=== PATIENT | male | born 1945 | race Caucasian/White ===

== ENCOUNTER 2019-01-30 07:45 | Day surgery (SDC) | payer MEDICARE, OTHER ==
[~2019-01-30] VITALS: Ht 185.4 cm; Wt 88.4 kg
[~2019-01-30 07:45] MED LIST: APIX5TAB3 PO; DILT240C90 PO; HYDR-4353 PO; LISI40TA4 PO; TAMS0.4C32 PO
[2019-01-30 08:05] VITALS: BP 132/70
[2019-01-30] MEDS ORDERED: sodium bicarbonate (8.4%) inj. 75 MEQ in dextrose 5% water 500ml 500 ML IV SCH (08:10)
[2019-01-30] MEDS ORDERED: acetylcysteine 200 MG/ml 4ml vial PO ONE (08:20)
[2019-01-30] MEDS ORDERED: iohexol 350MG/ML 100ml bottle IV ONE (11:01)
== END 2019-01-30 11:36 | disposition home or self-care (01) ==
LOC: SSTAY O 07:45 → EDSTATUS 08:00 → SSTAY O 11:36
PROVIDERS: ATTEND Surgery
DX: I71.4 Abdominal aortic aneurysm, without rupture (principal); I72.3 Aneurysm of iliac artery; I70.202 Unspecified atherosclerosis of native arteries of extremities, left leg; K80.20 Calculus of gallbladder without cholecystitis without obstruction
CPT/HCPCS: 75635; Q9967

== ENCOUNTER 2023-01-02 22:03 | Inpatient (IN) | payer MEDICARE, OTHER ==
[~2023-01-02] VITALS: Ht 182.9 cm; Wt 79.0 kg
[~2023-01-02 22:03] MED LIST changes: +ALBU6.7H14 INH; +ASCO-321 PO; +BUDE10.22 INH; +CALC667T6 PO; +CARV25TA3 PO; +CHOL20002 PO; +DEXA6TAB PO; +DILT-35 PO; -DILT240C90 PO; +FOLI1TAB34 PO; +GUAI600T45 PO; +HYDR-4069 PO; -HYDR-4353 PO; -LISI40TA4 PO; +LOSA50TA64 PO; +ROSU20TA73 PO; -TAMS0.4C32 PO; +[UNRECOGNIZED DRUG - OTHER]
[2023-01-02 22:45] LABS: BASOPHILS % (AUTO) 0 % (0-1); EOSINOPHILS # (AUTO) 0.1 X10'3 (0-0.9); EOSINOPHILS % (AUTO) 0.8 % (0-6); LYMPHOCYTES # (AUTO) 0.5 X10'3 (1.1-4.8); LYMPHOCYTES % (AUTO) 4.9 % (21-51); MEAN CORPUSCULAR HEMOGLOBIN 33.3 PG (27.0-31.0); MEAN CORPUSCULAR HGB CONC 33.6 g/dL (33.0-36.5); MEAN CORPUSCULAR VOLUME 99.1 FL (78-98); MEAN PLATELET VOLUME 6.3 FL (7.4-10.4); MONOCYTES # (AUTO) 0.6 X10'3 (0-0.9); MONOCYTES % (AUTO) 6.6 % (2-12); NEUTROPHILS # (AUTO) 8.7 X10'3 (1.8-7.7); NEUTROPHILS % (AUTO) 87.7 % (42-75); PLATELET COUNT 258 X10'3 (140-440); RED BLOOD COUNT 1.92 X10'6 (4.70-6.10); RED CELL DISTRIBUTION WIDTH 15.7 % (11.5-14.5); WHITE BLOOD COUNT 9.9 X10'3 (4.5-11.0)
[2023-01-02 22:56] LABS: ALANINE AMINOTRANSFERASE 56 U/L (12-78); ALBUMIN 2.1 G/DL (3.4-5.0); ALBUMIN/GLOBULIN RATIO 0.6 (1.1-1.5); ALKALINE PHOSPHATASE 66 IU/L (46-116); ANION GAP 6 (8-16); ASPARTATE AMINO TRANSFERASE 45 U/L (10-37); BILIRUBIN,TOTAL 0.5 MG/DL (0.1-1.0); BLOOD UREA NITROGEN 27 MG/DL (7-18); BUN/CREATININE RATIO 7.6 (10.0-20.0); CALCIUM 8.2 MG/DL (8.5-10.1); CHLORIDE 99 MMOL/L (99-107); CREATININE 3.55 MG/DL (0.60-1.10); GLUCOSE 152 MG/DL (70-104); HEMATOCRIT 19.1 % (42.0-52.0); HEMOGLOBIN 6.4 g/dl (14.0-17.9); POTASSIUM 4.5 MMOL/L (3.5-5.1); SODIUM 139 MMOL/L (135-145); TOTAL CARBON DIOXIDE 33.9 MMOL/L (24-32); TOTAL PROTEIN 5.9 G/DL (6.4-8.2); eCRCL 19 ML/MIN; eGFR 17 ML/MIN
[2023-01-02] MEDS ORDERED: pantoprazole 40mg IV 80 MG in normal saline 100ml IV soln 100 ML IV ONE (23:10)
[2023-01-02] MEDS ORDERED: pantoprazole 40MG/NS 100ML BAG 100 ML IV ONE ×2 (23:15→23:30)
[2023-01-02 23:17] LABS: PROTHROMBIN TIME 10.8 SECONDS (9.0-12.0)
[2023-01-02 23:39] LABS: PRO BRAIN NATRIURETIC PEPTIDE > 30000 PG/ML (0-450)
[2023-01-03] VITALS (15 sets, daily range): BP systolic 118–160; BP diastolic 63–78; PULSE 66–100; RESP 13–66; TEMP 97.6–99.5; O2SAT 94–98
[2023-01-03 01:43] LABS: OCCULT BLOOD STOOL POSITIVE (Neg)
[2023-01-03] MEDS ORDERED: magnesium 2GM in 50ml NS 50 ML IV PRN (04:40)
[2023-01-03] MEDS ORDERED: mag hydrox/Alum hydrox/simeth 30ml oral suspension PO PRN (04:40)
[2023-01-03] MEDS ORDERED: potassium Cl 20 mEq SR tablet PO PRN ×2 (04:40)
[2023-01-03] MEDS ORDERED: potassium Cl 40MEQ/1/2NS 520ml 520 ML IV PRN (04:40)
[2023-01-03] MEDS ORDERED: acetaminophen 325mg tablet PO PRN (04:40)
[2023-01-03] MEDS ORDERED: magnesium Cl slow-release 64mg tablet PO PRN (04:40)
[2023-01-03] MEDS ORDERED: magnesium 4gm in 100ml NS 100 ML IV PRN (04:40)
[2023-01-03] MEDS ORDERED: morphine 2 MG/ML inj. syringe IV PRN ×2 (04:40)
[2023-01-03] MEDS ORDERED: ondansetron/PF 4mg/2ml inj IV PRN (04:40)
[2023-01-03] MEDS ORDERED: dextrose 5%-1/2 normal saline 1,000 ML IV SCH (04:40)
[2023-01-03] MEDS ORDERED: magnesium hydroxide 30ml (MOM) UD suspension PO PRN (04:40)
[2023-01-03] MEDS ORDERED: glucagon, human recombinant 1mg kit SUBCUT PRN (06:35)
[2023-01-03] MEDS ORDERED: DEXTROSE 15 GM of carb/4 tabs (each vial/BOTTLE has 4 tablets) PO PRN ×2 (06:35)
[2023-01-03] MEDS ORDERED: MESSAGE TO PHARMACY PO ONE (06:35)
[2023-01-03] MEDS ORDERED: insulin Lispro (HumaLOG) vial - multi-dose SQ SCH (06:35)
[2023-01-03] MEDS ORDERED: dextrose 50%-water 50ml dispensing syringe IV PRN ×2 (06:35)
[2023-01-03] MEDS: K and/or MAG REPLACEMENT MC SCH ×2 (06:38→20:00)
[2023-01-03 07:07] LABS: MAGNESIUM 2.3 MG/DL (1.5-2.4); POTASSIUM 4.4 MMOL/L (3.5-5.1)
[2023-01-03 07:34] LABS: HEMOGLOBIN A1C 5.3 % (4.5-6.2)
--- NOTE | 2023-01-03 07:43 | NUR ---
Patient in room ED 13. I have received report from KIMBERLY Torres and had the opportunity to ask questions and assume patient care.
--- NOTE | 2023-01-03 07:59 | NUR ---
Report called to Denisha on PCU. Pt transferred upstairs on wheelchair with all belongings.
[2023-01-03] MEDS: docusate sod 100mg capsule PO SCH ×2 (08:00→20:00)
[2023-01-03] MEDS ORDERED: ALBU6.7H14 INH (10:33)
[2023-01-03] MEDS ORDERED: APIX5TAB3 PO (10:33)
[2023-01-03 11:40] LABS: BASOPHILS % (AUTO) 0.5 % (0-1); EOSINOPHILS # (AUTO) 0.1 X10'3 (0-0.9); LYMPHOCYTES # (AUTO) 0.7 X10'3 (1.1-4.8); LYMPHOCYTES % (AUTO) 10.6 % (21-51); MEAN CORPUSCULAR HEMOGLOBIN 32.1 PG (27.0-31.0); MEAN CORPUSCULAR HGB CONC 32.8 g/dL (33.0-36.5); MEAN CORPUSCULAR VOLUME 97.6 FL (78-98); MEAN PLATELET VOLUME 6.5 FL (7.4-10.4); MONOCYTES # (AUTO) 0.6 X10'3 (0-0.9); NEUTROPHILS # (AUTO) 5.5 X10'3 (1.8-7.7); NEUTROPHILS % (AUTO) 78.9 % (42-75); PLATELET COUNT 212 X10'3 (140-440); RED BLOOD COUNT 2.18 X10'6 (4.70-6.10); RED CELL DISTRIBUTION WIDTH 17.2 % (11.5-14.5)
[2023-01-03 11:42] LABS: HEMATOCRIT 21.3 % (42.0-52.0)
[2023-01-03 12:02] LABS: ALANINE AMINOTRANSFERASE 46 U/L (12-78); ALBUMIN 1.9 G/DL (3.4-5.0); ALBUMIN/GLOBULIN RATIO 0.5 (1.1-1.5); ALKALINE PHOSPHATASE 49 IU/L (46-116); ANION GAP 6 (8-16); ASPARTATE AMINO TRANSFERASE 37 U/L (10-37); BILIRUBIN,TOTAL 0.5 MG/DL (0.1-1.0); BLOOD UREA NITROGEN 32 MG/DL (7-18); BUN/CREATININE RATIO 7.5 (10.0-20.0); CALCIUM 7.8 MG/DL (8.5-10.1); CHLORIDE 100 MMOL/L (99-107); CREATININE 4.28 MG/DL (0.60-1.10); GLUCOSE 94 MG/DL (70-104); POTASSIUM 4.4 MMOL/L (3.5-5.1); SODIUM 138 MMOL/L (135-145); TOTAL PROTEIN 5.4 G/DL (6.4-8.2); eCRCL 16 ML/MIN; eGFR 14 ML/MIN
[2023-01-03 13:24] LABS: PHOSPHORUS 2.8 MG/DL (2.3-4.5)
[2023-01-03] MEDS: NUT.TX.IMP.RENAL FXN,LAC-REDUC (Nepro) 237 ML VANILLA PO SCH (18:15)
--- NOTE | 2023-01-03 18:29 | NUR ---
Problems reprioritized. Patient report given, questions answered & plan of care reviewed with KIMBERLY Claudio.
[2023-01-03] MEDS: insulin glargine (Lantus) pen - multi-dose SQ SCH (21:00)
[2023-01-03] MEDS: pantoprazole 40MG/NS 100ML BAG 100 ML IV SCH (22:18)
[2023-01-04] VITALS (7 sets, daily range): BP systolic 105–182; BP diastolic 49–94; PULSE 89–104; RESP 23–29; TEMP 97.8–98.4; O2SAT 95–100
[2023-01-04] MEDS: pantoprazole 40MG/NS 100ML BAG 100 ML IV SCH ×2 (01:00→06:51)
--- NOTE | 2023-01-04 06:12 | NUR ---
Patient in room PCU 3028. I have received report from KIMBERLY Claudio and had the opportunity to ask questions and assume patient care.
[2023-01-04 07:17] LABS: BASOPHILS % (AUTO) 0.6 % (0-1); EOSINOPHILS # (AUTO) 0.1 X10'3 (0-0.9); EOSINOPHILS % (AUTO) 1.7 % (0-6); HEMATOCRIT 22.7 % (42.0-52.0); HEMOGLOBIN 7.6 g/dl (14.0-17.9); LYMPHOCYTES # (AUTO) 0.9 X10'3 (1.1-4.8); LYMPHOCYTES % (AUTO) 12.2 % (21-51); MEAN CORPUSCULAR HEMOGLOBIN 32.5 PG (27.0-31.0); MEAN CORPUSCULAR HGB CONC 33.3 g/dL (33.0-36.5); MEAN CORPUSCULAR VOLUME 97.7 FL (78-98); MEAN PLATELET VOLUME 6.4 FL (7.4-10.4); MONOCYTES # (AUTO) 0.5 X10'3 (0-0.9); MONOCYTES % (AUTO) 7.2 % (2-12); NEUTROPHILS # (AUTO) 5.5 X10'3 (1.8-7.7); NEUTROPHILS % (AUTO) 78.3 % (42-75); PLATELET COUNT 236 X10'3 (140-440); RED BLOOD COUNT 2.32 X10'6 (4.70-6.10)
[2023-01-04 07:27] LABS: ALANINE AMINOTRANSFERASE 47 U/L (12-78); ALBUMIN 2.1 G/DL (3.4-5.0); ALBUMIN/GLOBULIN RATIO 0.5 (1.1-1.5); ALKALINE PHOSPHATASE 58 IU/L (46-116); ANION GAP 7 (8-16); ASPARTATE AMINO TRANSFERASE 41 U/L (10-37); BILIRUBIN,TOTAL 0.5 MG/DL (0.1-1.0); BLOOD UREA NITROGEN 42 MG/DL (7-18); BUN/CREATININE RATIO 8.1 (10.0-20.0); CALCIUM 8.2 MG/DL (8.5-10.1); CHLORIDE 97 MMOL/L (99-107); CREATININE 5.17 MG/DL (0.60-1.10); GLUCOSE 78 MG/DL (70-104); MAGNESIUM 2.4 MG/DL (1.5-2.4); SODIUM 132 MMOL/L (135-145); TOTAL CARBON DIOXIDE 27.7 MMOL/L (24-32); TOTAL PROTEIN 6.2 G/DL (6.4-8.2); eCRCL 13 ML/MIN; eGFR 11 ML/MIN
[2023-01-04 07:32] LABS: POTASSIUM 5.2 MMOL/L (3.5-5.1)
[2023-01-04] MEDS: docusate sod 100mg capsule PO SCH ×2 (08:00→20:00)
[2023-01-04] MEDS: K and/or MAG REPLACEMENT MC SCH ×2 (08:00→20:29)
[2023-01-04] MEDS: NUT.TX.IMP.RENAL FXN,LAC-REDUC (Nepro) 237 ML VANILLA PO SCH ×3 (08:00→18:14)
[2023-01-04] MEDS ORDERED: EPOETIN ALFA-EPBX 20,000 UNIT/ML 1 ML MDV IV ONE (08:00)
[2023-01-04] MEDS: folic acid/vitamin B complex w/vitamin C 0.8mg tablet PO SCH (09:09)
[2023-01-04] MEDS: pantoprazole 40mg Tablet.DR PO SCH (17:40)
[2023-01-04] MEDS: insulin glargine (Lantus) pen - multi-dose SQ SCH (21:00)
[2023-01-04 21:09] LABS: BILIRUBIN,URINE NEGATIVE (Neg); CLARITY,URINE CLEAR (Clear); COLOR,URINE YELLOW (Yellow); GLUCOSE, URINE NEGATIVE (Neg); KETONES,URINE NEGATIVE (Neg); LEUKOCYTE ESTERASE ,URINE NEGATIVE (Neg); NITRITES, URINE NEGATIVE (Neg); OCCULT BLOOD,URINE NEGATIVE (Neg); PH,URINE 7.5 (4.8-8.0); PROTEIN,URINE 100 mg/dl (Neg); UROBILINOGEN,URINE 0.2 E.U/dL (0.2-1.0)
[2023-01-04 21:11] LABS: UA COLLECTION TYPE NON-SPECIFIED
[2023-01-04 21:19] LABS: BACTERIA,URINE FEW /HPF (Neg); RBC,URINE 0-2 /HPF (0-2); SQUAMOUS EPITHELIAL CELL,UR NONE SEEN /LPF (FEW); WBC,URINE 0-4 /HPF (0-4)
[2023-01-04 21:20] LABS: FINE GRANULAR CAST 0-3 /LPF (NEGATIVE)
[2023-01-05] VITALS (11 sets, daily range): BP systolic 119–171; BP diastolic 62–88; PULSE 92–111; RESP 16–22; TEMP 97.4–98.3; O2SAT 94–97
--- NOTE | 2023-01-05 04:30 | NUR ---
PAGER ID: [phone] MESSAGE: Keiht Aguilar in 3028A is Hypertensive 178/91 despite 4L off with HD on day shift. His home meds have been reviewed but they have not given him any medications for hypertension. Please advise. KIMBERLY Denny [id number]
[2023-01-05] MEDS ORDERED: hydrALAZINE 20mg/ml inj. IV PRN (04:35)
--- NOTE | 2023-01-05 06:29 | NUR ---
Problems reprioritized. Patient report given, questions answered & plan of care reviewed with KIMBERLY Baker.
[2023-01-05] MEDS ORDERED: albumin (human) 25% 100ml IV 100 ML IV PRN (06:30)
[2023-01-05] MEDS ORDERED: EPOETIN ALFA-EPBX 20,000 UNIT/ML 1 ML MDV IV ONE (06:30)
[2023-01-05] MEDS: K and/or MAG REPLACEMENT MC SCH ×2 (06:48→20:00)
[2023-01-05] MEDS: NUT.TX.IMP.RENAL FXN,LAC-REDUC (Nepro) 237 ML VANILLA PO SCH ×3 (08:00→17:51)
[2023-01-05 08:01] LABS: BASOPHILS % (AUTO) 0.4 % (0-1); EOSINOPHILS # (AUTO) 0.1 X10'3 (0-0.9); EOSINOPHILS % (AUTO) 1.7 % (0-6); HEMATOCRIT 22.6 % (42.0-52.0); HEMOGLOBIN 7.6 g/dl (14.0-17.9); LYMPHOCYTES # (AUTO) 0.7 X10'3 (1.1-4.8); LYMPHOCYTES % (AUTO) 11.5 % (21-51); MEAN CORPUSCULAR HEMOGLOBIN 33.2 PG (27.0-31.0); MEAN CORPUSCULAR HGB CONC 33.7 g/dL (33.0-36.5); MEAN CORPUSCULAR VOLUME 98.3 FL (78-98); MEAN PLATELET VOLUME 6.2 FL (7.4-10.4); MONOCYTES # (AUTO) 0.5 X10'3 (0-0.9); MONOCYTES % (AUTO) 7.8 % (2-12); NEUTROPHILS # (AUTO) 4.7 X10'3 (1.8-7.7); NEUTROPHILS % (AUTO) 78.6 % (42-75); PLATELET COUNT 239 X10'3 (140-440); RED CELL DISTRIBUTION WIDTH 16.1 % (11.5-14.5)
[2023-01-05 08:19] LABS: ALANINE AMINOTRANSFERASE 40 U/L (12-78); ALBUMIN 2.1 G/DL (3.4-5.0); ALBUMIN/GLOBULIN RATIO 0.6 (1.1-1.5); ALKALINE PHOSPHATASE 52 IU/L (46-116); ANION GAP 7 (8-16); ASPARTATE AMINO TRANSFERASE 24 U/L (10-37); BILIRUBIN,TOTAL 0.4 MG/DL (0.1-1.0); BLOOD UREA NITROGEN 33 MG/DL (7-18); BUN/CREATININE RATIO 7.5 (10.0-20.0); CALCIUM 8.3 MG/DL (8.5-10.1); CHLORIDE 100 MMOL/L (99-107); CREATININE 4.41 MG/DL (0.60-1.10); GLUCOSE 97 MG/DL (70-104); MAGNESIUM 2.3 MG/DL (1.5-2.4); SODIUM 136 MMOL/L (135-145); TOTAL CARBON DIOXIDE 29.5 MMOL/L (24-32); TOTAL PROTEIN 5.9 G/DL (6.4-8.2); eCRCL 16 ML/MIN; eGFR 13 ML/MIN
[2023-01-05] MEDS: docusate sod 100mg capsule PO SCH ×2 (08:46→20:56)
[2023-01-05] MEDS: pantoprazole 40mg Tablet.DR PO SCH ×2 (08:46→17:51)
[2023-01-05] MEDS: folic acid/vitamin B complex w/vitamin C 0.8mg tablet PO SCH (08:46)
[2023-01-05] MEDS ORDERED: albuterol 2.5 MG/3 ML nebule NEB PRN (10:00)
[2023-01-05] MEDS ORDERED: non-formulary drug (Albuterol Sulfate (Proventil Hfa) 2 PUFFS) INH PRN (12:20)
[2023-01-05 13:41] LABS: % IRON SATURATION 6 % (11-46); IRON 24 UG/DL (53-167); TOTAL IRON BINDING CAPACITY 398 UG/DL (259-388)
[2023-01-05] MEDS: albuterol 2.5 MG/3 ML nebule NEB SCH ×2 (15:05→19:36)
[2023-01-05 15:09] LABS: PHOSPHORUS 4.1 MG/DL (2.3-4.5)
[2023-01-05] MEDS ORDERED: sodium ferric gluc complex inj 125 MG in normal saline 100ml IV soln 100 ML IV ONE (15:45)
[2023-01-05] MEDS: sodium ferric gluc complex inj 125 MG in normal saline 100ml IV soln 100 ML IV SCH (16:00)
[2023-01-05] MEDS: budesonide 0.5mg/2ml UD nebule IH SCH (19:36)
[2023-01-05] MEDS: guaiFENesin ER 600mg tablet PO SCH (20:56)
[2023-01-05] MEDS: carVEDilol 12.5mg tablet PO SCH (20:57)
[2023-01-05] MEDS: losartan 50mg tablet PO SCH (20:57)
[2023-01-05] MEDS: insulin glargine (Lantus) pen - multi-dose SQ SCH (21:00)
[2023-01-06] VITALS (23 sets, daily range): BP systolic 125–150; BP diastolic 61–87; PULSE 78–104; RESP 14–22; TEMP 97.5–98.9; O2SAT 90–100
[2023-01-06] MEDS: albuterol 2.5 MG/3 ML nebule NEB SCH ×4 (02:11→19:59)
[2023-01-06] MEDS: K and/or MAG REPLACEMENT MC SCH ×2 (06:35→20:00)
[2023-01-06] MEDS: pantoprazole 40mg Tablet.DR PO SCH ×2 (07:00→17:35)
--- NOTE | 2023-01-06 07:30 | NUR ---
This RN has reviewed and agrees w/the FARM HELPER's physical assessment of this patient.
[2023-01-06] MEDS ORDERED: folic acid/vitamin B complex w/vitamin C 0.8mg tablet PO SCH (08:00)
[2023-01-06] MEDS: guaiFENesin ER 600mg tablet PO SCH ×2 (08:00→20:31)
[2023-01-06] MEDS: NUT.TX.IMP.RENAL FXN,LAC-REDUC (Nepro) 237 ML VANILLA PO SCH ×3 (08:00→17:35)
[2023-01-06] MEDS: docusate sod 100mg capsule PO SCH ×2 (08:00→20:00)
[2023-01-06] MEDS: losartan 50mg tablet PO SCH ×2 (08:00→20:32)
[2023-01-06] MEDS: sodium ferric gluc complex inj 125 MG in normal saline 100ml IV soln 100 ML IV SCH (08:00)
[2023-01-06] MEDS: carVEDilol 12.5mg tablet PO SCH ×2 (08:00→20:32)
[2023-01-06] MEDS ORDERED: levoFLOXACIN-Levaquin 500mg/D5 100 ML IV SCH (08:00)
[2023-01-06] MEDS: budesonide 0.5mg/2ml UD nebule IH SCH ×2 (08:23→20:09)
[2023-01-06 08:31] LABS: BASOPHILS # (AUTO) 0.1 X10'3 (0-0.2); EOSINOPHILS # (AUTO) 0.1 X10'3 (0-0.9); EOSINOPHILS % (AUTO) 2.2 % (0-6); LYMPHOCYTES # (AUTO) 0.8 X10'3 (1.1-4.8); LYMPHOCYTES % (AUTO) 13.9 % (21-51); MEAN CORPUSCULAR HEMOGLOBIN 32.6 PG (27.0-31.0); MEAN CORPUSCULAR HGB CONC 33.3 g/dL (33.0-36.5); MEAN CORPUSCULAR VOLUME 97.9 FL (78-98); MEAN PLATELET VOLUME 6.4 FL (7.4-10.4); MONOCYTES # (AUTO) 0.5 X10'3 (0-0.9); MONOCYTES % (AUTO) 7.8 % (2-12); NEUTROPHILS # (AUTO) 4.4 X10'3 (1.8-7.7); NEUTROPHILS % (AUTO) 75.1 % (42-75); PLATELET COUNT 219 X10'3 (140-440); RED BLOOD COUNT 2.13 X10'6 (4.70-6.10); RED CELL DISTRIBUTION WIDTH 16.5 % (11.5-14.5); WHITE BLOOD COUNT 5.9 X10'3 (4.5-11.0)
[2023-01-06 08:34] LABS: HEMATOCRIT 20.9 % (42.0-52.0); HEMOGLOBIN 6.9 g/dl (14.0-17.9)
[2023-01-06 08:53] LABS: ALANINE AMINOTRANSFERASE 36 U/L (12-78); ALBUMIN 1.9 G/DL (3.4-5.0); ALBUMIN/GLOBULIN RATIO 0.5 (1.1-1.5); ALKALINE PHOSPHATASE 49 IU/L (46-116); ANION GAP 5 (8-16); ASPARTATE AMINO TRANSFERASE 24 U/L (10-37); BILIRUBIN,TOTAL 0.4 MG/DL (0.1-1.0); BLOOD UREA NITROGEN 30 MG/DL (7-18); BUN/CREATININE RATIO 7.2 (10.0-20.0); CALCIUM 8.1 MG/DL (8.5-10.1); CHLORIDE 99 MMOL/L (99-107); CREATININE 4.18 MG/DL (0.60-1.10); GLUCOSE 93 MG/DL (70-104); MAGNESIUM 2.3 MG/DL (1.5-2.4); PHOSPHORUS 4.1 MG/DL (2.3-4.5); POTASSIUM 4.5 MMOL/L (3.5-5.1); SODIUM 133 MMOL/L (135-145); TOTAL CARBON DIOXIDE 28.7 MMOL/L (24-32); TOTAL PROTEIN 5.6 G/DL (6.4-8.2); eCRCL 17 ML/MIN; eGFR 14 ML/MIN
--- NOTE | 2023-01-06 09:23 | NUR ---
Spoke with resident regarding Low H&H value, orders given for 1 unit. Pt currently in GI lab.
[2023-01-06] MEDS ORDERED: diphenhydrAMINE 50 mg/ml inj ONE (10:45)
[2023-01-06] MEDS ORDERED: LIDOcaine Viscous 15ml cup ONE (10:45)
[2023-01-06] MEDS ORDERED: fentaNYL/PF 50MCG/1 ML 2ML syringe ONE (10:45)
[2023-01-06] MEDS ORDERED: MIDAZolam 1 MG/ML 5ML VIAL ONE (10:45)
[2023-01-06] MEDS: cholecalciferol (vitamin D3) 1,000 unit (25mcg) tablet PO SCH (13:52)
[2023-01-06] MEDS: folic acid/vitamin B complex w/vitamin C 0.8mg tablet PO SCH (13:53)
[2023-01-06] MEDS: ascorbic acid 500mg tablet PO SCH (13:53)
[2023-01-06] MEDS: atorvastatin 20mg tablet PO SCH (13:54)
--- NOTE | 2023-01-06 20:19 | NUR ---
Page Sent PAGER ID: [phone] MESSAGE: [id number] A: New Aguilar: Can I remove the ACHS accucheck order? pt does not want us to check anymore since he has not met protocol since he has been here. A1C is 5.3. thank you! Brit [id number]
[2023-01-06] MEDS: insulin glargine (Lantus) pen - multi-dose SQ SCH (21:00)
--- NOTE | 2023-01-06 21:48 | NUR ---
Doctor called and confirmed we can stop ACHS accuchecks.
[2023-01-07] VITALS (16 sets, daily range): BP systolic 117–169; BP diastolic 68–82; PULSE 70–100; RESP 16–21; TEMP 97.8–99; O2SAT 90–97
[2023-01-07] MEDS: albuterol 2.5 MG/3 ML nebule NEB SCH ×4 (01:47→20:53)
--- NOTE | 2023-01-07 07:03 | NUR ---
Patient in room PCU 3022. I have received report from GENE FRASER and had the opportunity to ask questions and assume patient care.
[2023-01-07 07:19] LABS: ALANINE AMINOTRANSFERASE 36 U/L (12-78); ALBUMIN 1.9 G/DL (3.4-5.0); ALBUMIN/GLOBULIN RATIO 0.5 (1.1-1.5); ALKALINE PHOSPHATASE 57 IU/L (46-116); ANION GAP 11 (8-16); ASPARTATE AMINO TRANSFERASE 27 U/L (10-37); BILIRUBIN,TOTAL 0.6 MG/DL (0.1-1.0); BLOOD UREA NITROGEN 51 MG/DL (7-18); CALCIUM 8.1 MG/DL (8.5-10.1); CHLORIDE 99 MMOL/L (99-107); CREATININE 5.65 MG/DL (0.60-1.10); GLUCOSE 98 MG/DL (70-104); MAGNESIUM 2.3 MG/DL (1.5-2.4); PHOSPHORUS 4.4 MG/DL (2.3-4.5); POTASSIUM 4.8 MMOL/L (3.5-5.1); SODIUM 133 MMOL/L (135-145); TOTAL CARBON DIOXIDE 23.2 MMOL/L (24-32); TOTAL PROTEIN 5.6 G/DL (6.4-8.2); eCRCL 12 ML/MIN; eGFR 10 ML/MIN
[2023-01-07 07:26] LABS: BASOPHILS # (AUTO) 0.1 X10'3 (0-0.2); BASOPHILS % (AUTO) 0.9 % (0-1); EOSINOPHILS # (AUTO) 0.2 X10'3 (0-0.9); EOSINOPHILS % (AUTO) 2.6 % (0-6); HEMATOCRIT 23.2 % (42.0-52.0); HEMOGLOBIN 7.9 g/dl (14.0-17.9); LYMPHOCYTES # (AUTO) 0.8 X10'3 (1.1-4.8); LYMPHOCYTES % (AUTO) 10.9 % (21-51); MEAN CORPUSCULAR HEMOGLOBIN 33.4 PG (27.0-31.0); MEAN CORPUSCULAR HGB CONC 34.2 g/dL (33.0-36.5); MEAN CORPUSCULAR VOLUME 97.7 FL (78-98); MEAN PLATELET VOLUME 6.6 FL (7.4-10.4); MONOCYTES # (AUTO) 0.5 X10'3 (0-0.9); MONOCYTES % (AUTO) 6.8 % (2-12); NEUTROPHILS # (AUTO) 5.6 X10'3 (1.8-7.7); NEUTROPHILS % (AUTO) 78.8 % (42-75); PLATELET COUNT 211 X10'3 (140-440); RED BLOOD COUNT 2.37 X10'6 (4.70-6.10); WHITE BLOOD COUNT 7.1 X10'3 (4.5-11.0)
[2023-01-07] MEDS: guaiFENesin ER 600mg tablet PO SCH ×2 (07:44→19:41)
[2023-01-07] MEDS: losartan 50mg tablet PO SCH ×2 (07:44→19:41)
[2023-01-07] MEDS: atorvastatin 20mg tablet PO SCH (07:45)
[2023-01-07] MEDS: pantoprazole 40mg Tablet.DR PO SCH ×2 (07:45→16:39)
[2023-01-07] MEDS: folic acid/vitamin B complex w/vitamin C 0.8mg tablet PO SCH (07:45)
[2023-01-07] MEDS: cholecalciferol (vitamin D3) 1,000 unit (25mcg) tablet PO SCH (07:45)
[2023-01-07] MEDS: ascorbic acid 500mg tablet PO SCH (07:45)
[2023-01-07] MEDS: docusate sod 100mg capsule PO SCH ×2 (07:46→19:40)
[2023-01-07] MEDS: carVEDilol 12.5mg tablet PO SCH ×2 (07:46→19:41)
[2023-01-07] MEDS: K and/or MAG REPLACEMENT MC SCH ×2 (08:00→20:00)
--- NOTE | 2023-01-07 08:01 | NUR ---
CALLED PHARMACY FOR FERRLECIT SULFATE INJ. STATED THEY ARE GOING TO MAKE IT AT THIS TIME AND IT WILL BE 30MIN TO MAKE.
[2023-01-07] MEDS: NUT.TX.IMP.RENAL FXN,LAC-REDUC (Nepro) 237 ML VANILLA PO SCH ×3 (08:32→18:00)
[2023-01-07] MEDS: sodium ferric gluc complex inj 125 MG in normal saline 100ml IV soln 100 ML IV SCH (08:33)
[2023-01-07] MEDS: budesonide 0.5mg/2ml UD nebule IH SCH ×2 (09:02→20:53)
--- NOTE | 2023-01-07 16:11 | NUR ---
Student charting reviewed by the instructor
--- NOTE | 2023-01-07 18:27 | NUR ---
Problems reprioritized. Patient report given TO MARIMAR RN, questions answered & plan of care reviewed with .
[2023-01-07] MEDS: insulin glargine (Lantus) pen - multi-dose SQ SCH (19:44)
[2023-01-08] VITALS (15 sets, daily range): BP systolic 121–178; BP diastolic 67–81; PULSE 72–100; RESP 18–28; TEMP 98–99.9; O2SAT 89–94
[2023-01-08] MEDS: albuterol 2.5 MG/3 ML nebule NEB SCH ×4 (02:21→20:45)
--- NOTE | 2023-01-08 02:40 | NUR ---
WOOL HAT FINISHER documentation: I have reviewed and agree with all interventions, assessments performed and documented by Marisel FRASER.
[2023-01-08] MEDS ORDERED: heparin 1,000unit/ml 10ml vial 10 ML IV ONE (07:05)
[2023-01-08] MEDS ORDERED: EPOETIN ALFA-EPBX 20,000 UNIT/ML 1 ML MDV IV ONE (07:05)
[2023-01-08] MEDS ORDERED: normal saline 1000ml 250 ML IV PRN (07:05)
[2023-01-08 07:06] LABS: BASOPHILS % (AUTO) 0.5 % (0-1); EOSINOPHILS # (AUTO) 0.2 X10'3 (0-0.9); HEMATOCRIT 22.4 % (42.0-52.0); HEMOGLOBIN 7.5 g/dl (14.0-17.9); LYMPHOCYTES # (AUTO) 0.7 X10'3 (1.1-4.8); LYMPHOCYTES % (AUTO) 10.1 % (21-51); MEAN CORPUSCULAR HEMOGLOBIN 31.8 PG (27.0-31.0); MEAN CORPUSCULAR HGB CONC 33.3 g/dL (33.0-36.5); MEAN CORPUSCULAR VOLUME 95.6 FL (78-98); MEAN PLATELET VOLUME 7.1 FL (7.4-10.4); MONOCYTES # (AUTO) 0.6 X10'3 (0-0.9); MONOCYTES % (AUTO) 9.1 % (2-12); NEUTROPHILS % (AUTO) 77.3 % (42-75); PLATELET COUNT 242 X10'3 (140-440); RED BLOOD COUNT 2.34 X10'6 (4.70-6.10); RED CELL DISTRIBUTION WIDTH 16.4 % (11.5-14.5); WHITE BLOOD COUNT 6.5 X10'3 (4.5-11.0)
[2023-01-08] MEDS ORDERED: heparin 1,000 units/ml 10ml inj HE ONE ×2 (07:10)
[2023-01-08] MEDS: budesonide 0.5mg/2ml UD nebule IH SCH ×2 (07:20→20:45)
[2023-01-08 07:21] LABS: ALANINE AMINOTRANSFERASE 33 U/L (12-78); ALBUMIN 1.9 G/DL (3.4-5.0); ALBUMIN/GLOBULIN RATIO 0.5 (1.1-1.5); ALKALINE PHOSPHATASE 64 IU/L (46-116); ANION GAP 13 (8-16); ASPARTATE AMINO TRANSFERASE 19 U/L (10-37); BILIRUBIN,TOTAL 0.6 MG/DL (0.1-1.0); BLOOD UREA NITROGEN 71 MG/DL (7-18); BUN/CREATININE RATIO 9.9 (10.0-20.0); CALCIUM 8.1 MG/DL (8.5-10.1); CHLORIDE 98 MMOL/L (99-107); GLUCOSE 97 MG/DL (70-104); PHOSPHORUS 6.3 MG/DL (2.3-4.5); POTASSIUM 5.6 MMOL/L (3.5-5.1); SODIUM 133 MMOL/L (135-145); TOTAL CARBON DIOXIDE 22.5 MMOL/L (24-32); TOTAL PROTEIN 5.5 G/DL (6.4-8.2); eCRCL 10 ML/MIN; eGFR 7 ML/MIN
[2023-01-08] MEDS: K and/or MAG REPLACEMENT MC SCH ×2 (08:00→20:19)
[2023-01-08] MEDS: ascorbic acid 500mg tablet PO SCH (08:00)
[2023-01-08] MEDS ORDERED: levoFLOXACIN-Levaquin 250mg/D5 50 ML IV SCH (08:00)
[2023-01-08] MEDS: docusate sod 100mg capsule PO SCH ×2 (08:00→20:00)
[2023-01-08] MEDS: NUT.TX.IMP.RENAL FXN,LAC-REDUC (Nepro) 237 ML VANILLA PO SCH ×2 (08:00→12:56)
[2023-01-08] MEDS: sodium ferric gluc complex inj 125 MG in normal saline 100ml IV soln 100 ML IV SCH (09:02)
[2023-01-08] MEDS: losartan 50mg tablet PO SCH ×2 (09:11→20:30)
[2023-01-08] MEDS: atorvastatin 20mg tablet PO SCH (09:12)
[2023-01-08] MEDS: pantoprazole 40mg Tablet.DR PO SCH ×2 (09:12→17:53)
[2023-01-08] MEDS: carVEDilol 12.5mg tablet PO SCH ×2 (09:14→20:30)
[2023-01-08] MEDS: cholecalciferol (vitamin D3) 1,000 unit (25mcg) tablet PO SCH (09:15)
[2023-01-08] MEDS: folic acid/vitamin B complex w/vitamin C 0.8mg tablet PO SCH (09:15)
[2023-01-08] MEDS: guaiFENesin ER 600mg tablet PO SCH ×2 (09:15→20:30)
--- NOTE | 2023-01-08 13:59 | NUR ---
Initial: Pt admit DX ESRD on HD,anemia secondary to GIB, HTN, and bronchitis per EMR. PO ~100% initial 3 days full liquids now regular diet since 01/06 [facility] receiving Nepro TIDWM overall meeting estimated needs. ABBY d/w RN and paged MD regarding removal of Nepro TID given adequate solid meals intake hx and Phos binder since on HD if agreeable; Phos 6.3mg/dl this AM first time elevated per EMR. LBM 01/06 per EMR. No nutrition interventions at this time. Will continue to follow. Rec: 1. continue regular diet per MD 2. routine Nephro-lou, vitamins C and D3 per MD 3. consider Phos binder w/ meals on HD per physician discretion 4. routine bowel care 5. scaled wt this admit; subsequent wts w/ HD Addendum: 01/08/23 at [address] Amended: Links added.
--- NOTE | 2023-01-08 18:07 | NUR ---
AGREE WITH SEARCH SPECIALIST AM ASSESSMENT
[2023-01-08] MEDS: insulin glargine (Lantus) pen - multi-dose SQ SCH (20:24)
[2023-01-09] VITALS (9 sets, daily range): BP systolic 130–164; BP diastolic 73–79; PULSE 86–97; RESP 18–29; TEMP 97.4–99.9; O2SAT 88–97
--- NOTE | 2023-01-09 00:56 | NUR ---
LATE ENTRY FOR 01/08/23 @1800 Patient in room PCU 3022. I have received report from ELVIRA FRASER and had the opportunity to ask questions and assume patient care.
[2023-01-09] MEDS: albuterol 2.5 MG/3 ML nebule NEB SCH ×3 (02:44→14:00)
[2023-01-09] MEDS: budesonide 0.5mg/2ml UD nebule IH SCH (07:24)
[2023-01-09] MEDS: K and/or MAG REPLACEMENT MC SCH (08:00)
[2023-01-09] MEDS: docusate sod 100mg capsule PO SCH (08:00)
[2023-01-09] MEDS ORDERED: ascorbic acid 500mg tablet PO SCH (08:26)
[2023-01-09] MEDS ORDERED: ascorbic acid 500mg tablet PO ONE (08:27)
[2023-01-09] MEDS: cholecalciferol (vitamin D3) 1,000 unit (25mcg) tablet PO SCH (08:27)
[2023-01-09] MEDS: atorvastatin 20mg tablet PO SCH (08:27)
[2023-01-09] MEDS: guaiFENesin ER 600mg tablet PO SCH (08:28)
[2023-01-09] MEDS ORDERED: APIX2.5T PO (08:29)
[2023-01-09] MEDS: losartan 50mg tablet PO SCH (08:29)
[2023-01-09] MEDS: folic acid/vitamin B complex w/vitamin C 0.8mg tablet PO SCH (08:29)
[2023-01-09] MEDS: pantoprazole 40mg Tablet.DR PO SCH (08:30)
[2023-01-09] MEDS: carVEDilol 12.5mg tablet PO SCH (08:30)
--- NOTE | 2023-01-09 11:47 | NUR ---
AGREE WITH STEM CRUSHER AM ASSESSMENT
--- NOTE | 2023-01-09 16:43 | NUR ---
Patient discharged. Telebox DCed and returned to [facility]. IV DCed. All discharge orders reviewed with patient and family and all questions answered. All personal items collected and sent with patient. Patient stable and had no c/o pain or discomfort. Patient left in private vehicle with family.
[2023-01-10] MEDS ORDERED: levoFLOXACIN 250mg tablet PO SCH (11:00)
== END 2023-01-09 16:40 | disposition home or self-care (01) | DRG 813 ==
LOC: ER 22:04 → ED HOLD 01-03 04:42 → PCU 3S 01-03 07:52
PROVIDERS: ADMIT Internal Medicine; ATTEND Internal Medicine
PROC: 30233N1 Transfusion of Nonautologous Red Blood Cells into Peripheral Vein, Percutaneous Approach (ICD-10-PCS; principal; 2023-01-03)
PROC: 5A1D70Z Performance of Urinary Filtration, Intermittent, Less than 6 Hours Per Day (ICD-10-PCS; 2023-01-04)
PROC: 5A1D70Z Performance of Urinary Filtration, Intermittent, Less than 6 Hours Per Day (ICD-10-PCS; 2023-01-05)
PROC: 0DB78ZX Excision of Stomach, Pylorus, Via Natural or Artificial Opening Endoscopic, Diagnostic (ICD-10-PCS; 2023-01-06)
DX: D68.32 Hemorrhagic disorder due to extrinsic circulating anticoagulants (principal); K29.71 Gastritis, unspecified, with bleeding; N18.6 End stage renal disease; J18.9 Pneumonia, unspecified organism; I12.0 Hypertensive chronic kidney disease with stage 5 chronic kidney disease or end stage renal disease; D62 Acute posthemorrhagic anemia; K92.2 Gastrointestinal hemorrhage, unspecified; E11.22 Type 2 diabetes mellitus with diabetic chronic kidney disease; E78.5 Hyperlipidemia, unspecified; J40 Bronchitis, not specified as acute or chronic; I48.91 Unspecified atrial fibrillation; Z82.49 Family history of ischemic heart disease and other diseases of the circulatory system; Z83.3 Family history of diabetes mellitus; Z99.2 Dependence on renal dialysis; Z85.038 Personal history of other malignant neoplasm of large intestine; Z88.6 Allergy status to analgesic agent; Z88.0 Allergy status to penicillin; Z79.899 Other long term (current) drug therapy; T45.515A Adverse effect of anticoagulants, initial encounter
CPT/HCPCS: 36415; 36430; 43239; 71045; 71046; 74176; 80053; 81001; 82272; 82948; 83036; 83540; 83550; 83735; 83880; 84100; 84132; 84484; 85025; 85610; 86885; 86900; 86901; 86920; 87081; 93005; 94640; 94760; 96365; 97116; 97161; 97530; 99152; 99291; A4615; A4620; A6258; C9113; G0378; J0360; J1200; J1644; J1815; J1956; J2250; J2270; J2916; J3010; J3490; J7030; J7040; P9016; Q4081